=== PATIENT | male | born 1950 ===

== ENCOUNTER 2018-10-12 09:27 | Day surgery (SDC) | payer MEDICARE ==
[2018-10-12 11:00] VITALS: BMI 36.5
[2018-10-12] MEDS ORDERED: Lactated Ringer's 500 ML IV ONE (11:11)
[2018-10-12 11:16] VITALS: O2SAT 97
[2018-10-12] MEDS ORDERED: Propofol 10 mg/ml Inj (20 ML) ONE (11:28)
[2018-10-12 12:54] VITALS: BP 104/74; PULSE 74; RESP 15; TEMP 98.8
== END 2018-10-12 13:00 | disposition home or self-care (01) ==
LOC: H.ENDO 09:27
PROVIDERS: ATTEND Internal Medicine Gastroenterology
DX: Z12.11 Encounter for screening for malignant neoplasm of colon (principal); E66.9 Obesity, unspecified; E11.9 Type 2 diabetes mellitus without complications; E78.5 Hyperlipidemia, unspecified; I10 Essential (primary) hypertension; K64.8 Other hemorrhoids
CPT/HCPCS: 45378; 82948; J2704; J7120